=== PATIENT | male | born 1965 | race Caucasian/White ===

== ENCOUNTER 2018-05-24 12:55 | Emergency (ER) | payer MEDICAID ==
--- NOTE | 2018-05-24 13:50 | ED Physician Documentation ---
History of Present Illness - Stated complaint Stated Complaint: R SHOULDER SPIDER BITE - Chief complaint Chief Complaint: General - History obtained from History obtained from: Patient - History of Present Illness Timing: Other (For couple weeks he feels like he had a spider bite over the right deltoid, no fevers or chills. It is getting bigger.) Review of Systems Constitutional: denies: Fever, Chills Cardiac: reports: Reviewed and negative Respiratory: reports: Reviewed and negative PD PAST MEDICAL HISTORY - Past Medical History Past Medical History: Yes Psych: Depression - Past Surgical History Past Surgical History: Yes Ortho: Shoulder arthroplasty - Present Medications Home Medications: Ambulatory Orders Medication Instructions Recorded Confirmed Buprenorphine HCl/Naloxone HCl 05/24/18 [Suboxone 12 mg-3 mg Sl Film] Sertraline [Zoloft] 05/24/18 Sulfamethoxazole/Trimethoprim 1 each PO BID 10 Days tablet 05/24/18 [Sulfamethoxazole-Tmp Ds Tablet] - Allergies Allergies/Adverse Reactions: Allergies Allergy/AdvReac Type Severity Reaction Status Date / Time unknown Allergy Severe Unknown Uncoded 09/15/14 14:08 - Social History Does the pt smoke?: No Smoking Status: Never smoker Does the pt drink ETOH?: No Does the pt have substance abuse?: Yes - Immunizations Immunizations are current?: Yes - POLST Patient has POLST: No PD ED PE NORMAL - Vitals Vital signs reviewed: Yes - General General: Alert and oriented X 3, No acute distress - Extremities Extremities: Other (There is area of cellulitis under his Zhou Gray tattoo, the hair specifically, over the right deltoid. Bedside ultrasound shows a small fluid collection.) - Neuro Neuro: Alert and oriented X 3, Normal speech Results - Vitals Vitals: Vital Signs - 24 hr 05/24/18 05/24/18 13:00 14:27 Temperature 37 C 37.1 C Heart Rate 60 66 Respiratory 20 15 Rate Blood Pressure 131/86 H 137/91 H O2 Saturation 97 100 Oxygen O2 Source Room air - Labs Labs: Microbiology 05/24/18 13:45 Wound Culture - Preliminary Abscess Procedures - Abscess I&D (location) Right deltoid Preparation: Confirmed with ultrasound, Alcohol, Lidocaine 1% Incision: No: Incised with scalpel (He wanted to avoid an incision so was just needle aspirated with about 1.5 mL of pus out and sent for culture.) PD MEDICAL DECISION MAKING - Sepsis Event Vital Signs: Vital Signs - 24 hr 05/24/18 05/24/18 13:00 14:27 Temperature 37 C 37.1 C Heart Rate 60 66 Respiratory 20 15 Rate Blood Pressure 131/86 H 137/91 H O2 Saturation 97 100 Oxygen O2 Source Room air Departure - Departure Disposition: 01 Home, Self Care Clinical Impression: Abscess Condition: Good Record reviewed to determine appropriate education?: Yes Instructions: ED Staph Infec Abx Tx Only Prescriptions: Sulfamethoxazole/Trimethoprim [Sulfamethoxazole-Tmp Ds Tablet] 1 each PO BID 10 Days tablet Comments: We are performing a wound culture, the results should be done in 48-72 hours. If antibiotic change is necessary we will call you. Return if worse in the meantime, especially if you develop increased pain, fevers, cannot keep down the medication. Otherwise follow-up with your physician in approximately 2-3 days. Your blood pressure was elevated today on check into the emergency department. This does not mean that you have hypertension, it is a common phenomenon to come to the emergency department and have elevated blood pressure. I recommend that you see your primary care physician within the week to have it rechecked when you are feeling better. Discharge Date/Time: 05/24/18 14:27
[2018-05-24 14:28] VITALS: BP 137/91
== END 2018-05-24 14:27 | disposition home or self-care (01) ==
LOC: ED 12:55
DX: L02.413 Cutaneous abscess of right upper limb (principal); L03.113 Cellulitis of right upper limb; R03.0 Elevated blood-pressure reading, without diagnosis of hypertension
CPT/HCPCS: 10060; 10160; 87070; 87181; 87205; 99283

== ENCOUNTER 2018-07-28 17:57 | Emergency (ER) | payer MEDICAID ==
[2018-07-28 18:13] VITALS: BP 131/96
[2018-07-28] MEDS ORDERED: predniSONE 20 MG TABLET PO STA (19:50)
[2018-07-28] MEDS ORDERED: IBUPROFEN 800 MG TABLET PO STA (19:50)
--- NOTE | 2018-07-28 19:52 | ED Physician Documentation ---
PD HPI LOWER EXT INJURY - Stated complaint Stated Complaint: RT LEG PX - Chief complaint Chief Complaint: Ext Problem - History obtained from History obtained from: Patient - History of Present Illness PD HPI LOW EXT INJURY LOCATION: Other (53-year-old gentleman on Suboxone for history of opiate abuse presents with 10 days of worsening right leg pain from the hip down to the foot with numbness in the foot. Also into the back sometimes. There is no saddle anesthesia or fever. No recent opiate abuse. He was seen at the [facility] and diagnosed with tarsal tunnel syndrome and placed on gabapentin which she just started.) Review of Systems Constitutional: denies: Fever, Chills GI: denies: Abdominal Pain, Nausea, Vomiting : denies: Dysuria, Frequency PD PAST MEDICAL HISTORY - Past Medical History Psych: Depression - Past Surgical History Past Surgical History: Yes Ortho: Shoulder arthroplasty - Present Medications Home Medications: Ambulatory Orders Medication Instructions Recorded Confirmed Buprenorphine HCl/Naloxone HCl 1 each 05/24/18 [Suboxone 12 mg-3 mg Sl Film] Sertraline [Zoloft] 1 tab 05/24/18 Gabapentin 300 mg 07/28/18 Ibuprofen [Motrin] 800 mg PO Q8H PRN #30 tablet 07/28/18 hydrOXYzine HCl [Hydroxyzine HCl] 10 mg 07/28/18 predniSONE [Deltasone] 20 mg PO [id number] #21 tab 07/28/18 - Allergies Allergies/Adverse Reactions: Allergies Allergy/AdvReac Type Severity Reaction Status Date / Time unknown Allergy Severe Unknown Uncoded 09/15/14 14:08 - Social History Does the pt smoke?: No Smoking Status: Never smoker Does the pt drink ETOH?: No Does the pt have substance abuse?: Yes - Immunizations Immunizations are current?: Yes - POLST Patient has POLST: No PD ED PE NORMAL - Vitals Vital signs reviewed: Yes - General General: Alert and oriented X 3, No acute distress - Back Back: No CVA TTP, No spinal TTP - Extremities Extremities: Other (Slightly diminished sensation in the right L4-L5 distribution with weak toe dorsiflexion, he has symmetric patellar and Achilles reflexes and the remainder of his strength exam is normal.) - Neuro Neuro: Alert and oriented X 3, Normal speech Results - Vitals Vitals: Vital Signs - 24 hr 07/28/18 18:03 Temperature 37.1 C Heart Rate 81 Respiratory 22 Rate Blood Pressure 131/96 H O2 Saturation 99 Oxygen O2 Source Room air PD MEDICAL DECISION MAKING - ED course ED course: 53-year-old gentleman with what appears to be a L4-L5 lumbar radiculopathy. He is on Suboxone and is treated with steroids and anti-inflammatories, he just started gabapentin as well. - Sepsis Event Vital Signs: Vital Signs - 24 hr 07/28/18 18:03 Temperature 37.1 C Heart Rate 81 Respiratory 22 Rate Blood Pressure 131/96 H O2 Saturation 99 Oxygen O2 Source Room air Departure - Departure Disposition: Home, Self Care Clinical Impression: Lumbar radiculopathy Condition: Good Record reviewed to determine appropriate education?: Yes Instructions: ED Sciatica Prescriptions: Ibuprofen [Motrin] 800 mg PO Q8H PRN #30 tablet PRN Reason: PAIN &/OR FEVER predniSONE [Deltasone] 20 mg PO [id number] #21 tab Comments: Continue the gabapentin in addition to the medications I am prescribing. Follow-up with your doctor and discuss physical therapy. Return for new or wo rsening symptoms. Your blood pressure was elevated today on check into the emergency department. This does not mean that you have hypertension, it is a common phenomenon to come to the emergency department and have elevated blood pressure. I recommend that you see your primary care physician within the week to have it rechecked when you are feeling better. Forms: Activity restrictions
== END 2018-07-28 19:55 | disposition home or self-care (01) ==
LOC: ED 17:57
DX: M54.16 Radiculopathy, lumbar region (principal); R03.0 Elevated blood-pressure reading, without diagnosis of hypertension
CPT/HCPCS: 99283; A9270; J7512

== ENCOUNTER 2020-03-13 11:08 | Emergency (ER) | payer MEDICAID ==
--- NOTE | 2020-03-13 11:49 | XRAY Report ---
Reason: fall, swelling, pain Procedure Date: 03/13/2020 Accession Number: [id number] / [id number] Procedure: XR - Shoulder 3 View LT CPT Code: Final Report FULL RESULT: EXAM: LEFT SHOULDER RADIOGRAPHY EXAM DATE: 03/13/2020 11:28 AM. CLINICAL HISTORY: Fall, swelling, pain. COMPARISON: None. TECHNIQUE: 3 views. FINDINGS: Bones: Normal. No fracture or bone lesion. Joints: The glenohumeral and acromioclavicular joints are normal. Soft tissues: The visualized hemithorax is unremarkable. No soft tissue swelling. IMPRESSION: Normal shoulder radiography. No fracture or dislocation. RADIA
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
[2020-03-13] MEDS ORDERED: BUFFERED LIDOCAINE 10 ML SYRINGE SUBQ STA (12:43)
[2020-03-13 15:42] VITALS: BP 130/70
== END 2020-03-13 15:41 | disposition home or self-care (01) ==
LOC: ED 11:08
DX: L02.414 Cutaneous abscess of left upper limb (principal)
CPT/HCPCS: 10060; 87070; 87077; 87181; 87205

== ENCOUNTER 2021-05-25 10:02 | Outpatient (CLI) | payer MEDICAID, OTHER ==
[2021-05-25 10:24] LABS: BASOPHILS % (AUTO) 0.7 %; EOSINOPHILS # (AUTO) 0.1 10^3/uL (0.0-0.7); HCT - HEMATOCRIT 36.5 % (42.0-52.0); HGB - HEMOGLOBIN 12.1 g/dL (14.0-18.0); LYMPHOCYTES # (AUTO) 0.9 10^3/uL (1.5-3.5); MEAN CORPUSCULAR HEMOGLOBIN 30.5 pg (27.0-31.0); MEAN CORPUSCULAR HGB CONC 33.2 g/dL (32.0-36.0); MEAN CORPUSCULAR VOLUME 91.9 fL (80.0-94.0); MEAN PLATELET VOLUME 9.1 fL (7.4-11.4); MONOCYTES # (AUTO) 0.3 10^3/uL (0.0-1.0); MONOCYTES % (AUTO) 10.6 %; NEUTROPHILS # (AUTO) 1.7 10^3/uL (1.5-6.6); NEUTROPHILS % (AUTO) 54.7 %; PLT - PLATELET COUNT 174 10^3/uL (130-450); RED BLOOD COUNT 3.97 10^6/uL (4.70-6.10)
[2021-05-25 10:39] LABS: ALBUMIN 4.3 g/dL (3.2-5.5); ALBUMIN/GLOBULIN RATIO 1.7 (1.0-2.2); ALKALINE PHOSPHATASE 77 IU/L (42-121); ALT ALANINE AMINOTRANSFERASE 16 IU/L (10-60); AST ASPARTATE AMINOTRANSFERASE 25 IU/L (10-42); BILIRUBIN,TOTAL 0.5 mg/dL (0.2-1.0); BUN - BLOOD UREA NITROGEN 15 mg/dL (6-20); CALCIUM 9.1 mg/dL (8.5-10.3); CARBON DIOXIDE - CO2 25 mmol/L (21-32); CHLORIDE 104 mmol/L (101-111); CREATININE 0.8 mg/dL (0.6-1.2); GFR - MDRD 101 (>89); GLUCOSE 104 mg/dL (70-100); POTASSIUM 4.3 mmol/L (3.5-5.0); SODIUM 137 mmol/L (135-145); TOTAL PROTEIN 6.8 g/dL (6.7-8.2); VALPROIC ACID (DEPAKOTE) 48.5 ug/mL
== END 2021-05-25 10:03 | disposition home or self-care (01) ==
LOC: LAB 10:02
PROVIDERS: ATTEND Registered Nurse
DX: E72.20 Disorder of urea cycle metabolism, unspecified (principal); R76.8 Other specified abnormal immunological findings in serum; E34.9 Endocrine disorder, unspecified; R94.31 Abnormal electrocardiogram [ECG] [EKG]; R79.89 Other specified abnormal findings of blood chemistry; R68.89 Other general symptoms and signs
CPT/HCPCS: 36415; 80053; 80164; 82140; 84443; 85025; 86592; 93005

== ENCOUNTER 2022-09-11 12:18 | Emergency (ER) | payer MEDICAID ==
[2022-09-11 12:33] VITALS: BP 151/87
[2022-09-11] MEDS ORDERED: CEPHALEXIN 250 MG Prepack 8 CAP BOTTLE PO STA (13:15)
--- NOTE | 2022-09-11 13:17 | ED Physician Documentation ---
PD HPI HEENT - Stated complaint Stated Complaint: BUMP BEHIND L EAR - Chief complaint Chief Complaint: Heent - History obtained from History obtained from: Patient - Additional information Additional information: Ongoing pain to a left mandibular molar for the last year worse with eating, over the last few days has developed a mildly painful bump behind the left ear. No other infectious symptoms or fevers. Review of Systems Constitutional: reports: Reviewed and negative Ears: reports: Reviewed and negative Cardiac: reports: Reviewed and negative PD PAST MEDICAL HISTORY - Past Medical History Psych: Depression - Past Surgical History Past Surgical History: Yes Ortho: Shoulder arthroplasty - Present Medications Home Medications: Ambulatory Orders Medication Instructions Recorded Confirmed Buprenorphine HCl/Naloxone HCl 1 each 05/24/18 [Suboxone 12 mg-3 mg Sl Film] Sertraline [Zoloft] 1 tab 05/24/18 Gabapentin 300 mg 07/28/18 Ibuprofen [Motrin] 800 mg PO Q8H PRN #30 tablet 07/28/18 hydrOXYzine HCL [Hydroxyzine HCl] 10 mg 07/28/18 predniSONE [Deltasone] 20 mg PO [id number] #21 tab 07/28/18 Sulfamethoxazole/Trimethoprim 1 each PO BID #14 tablet 03/13/20 [Sulfamethoxazole-Tmp Ds Tablet] Penicillin V Potassium 500 mg PO Q6HR #40 tablet 09/11/22 - Allergies Allergies/Adverse Reactions: Allergies Allergy/AdvReac Type Severity Reaction Status Date / Time No Known Drug Allergies Allergy Verified 09/11/22 12:33 - Social History Does the pt smoke?: No Smoking Status: Never smoker Does the pt drink ETOH?: No Does the pt have substance abuse?: Yes - Immunizations Immunizations are current?: Yes - POLST Patient has POLST: No PD ED PE NORMAL - Vitals Vital signs reviewed: Yes - General General: Alert and oriented X 3 - HEENT HEENT: Other (There is a large mildly tender cavity in the second to last molar on the left mandible. There is a small left retroauricular lymph node with mild tenderness. TMs normal.) - Neck Neck: Supple, no meningeal sign, No bony TTP - Extremities Extremities: No tenderness to palpate, Normal ROM s pain - Neuro Neuro: Alert and oriented X 3, Normal speech - Psych Psych: Normal mood, Normal affect Results - Vitals Vitals: Vital Signs - 24 hr 09/11/22 12:31 Temperature 36.5 C Heart Rate 62 Respiratory 14 Rate Blood Pressure 151/87 H O2 Saturation 98 Oxygen O2 Source Room air PD MEDICAL DECISION MAKING - ED course ED course: 57-year-old gentleman with retroauricular adenopathy possibly related to a dental infection, both dental and ENT follow-up was advised and will trial some antibiotics in the interim. He is given a prepack despite the early hour given that it is Thanksgiving and the pharmacies are closed. Departure - Departure Disposition: 01 Home, Self Care Clinical Impression: Pain due to dental caries, Posterior auricular lymphadenopathy Condition: Good Record reviewed to determine appropriate education?: Yes Instructions: Lymphadenopathy, ED Tooth Pain Prescriptions: Penicillin V Potassium 500 mg PO Q6HR #40 tablet Comments: As discussed, the swollen left retroauricular lymph node is likely related to your dental infection. You can follow-up with an ear nose and throat physician for better evaluation of this, the closest is [facility], the phone number is [phone]. It is very important that you follow-up with a dentist. When it comes to dental problems like yours, the emergency department can only offer a short-term solution to your long-term problem. A couple of low cost options for dental c are include: [facility] in [place], calls [phone] for an appointment Or [facility] in [place], call [phone] for an appointment.
== END 2022-09-11 13:24 | disposition home or self-care (01) ==
LOC: ED 12:18
DX: K02.9 Dental caries, unspecified (principal); R59.1 Generalized enlarged lymph nodes
CPT/HCPCS: 99282; 99284

== ENCOUNTER 2023-01-30 23:14 | Emergency (ER) | payer MEDICAID ==
[2023-01-30] MEDS ORDERED: QUEtiapine 25 MG TABLET PO STA (23:35)
[2023-01-30 23:46] LABS: BASOPHILS % (AUTO) 0.7 %; EOSINOPHILS # (AUTO) 0.1 10^3/uL (0.0-0.7); EOSINOPHILS % (AUTO) 1.1 %; HCT - HEMATOCRIT 37.7 % (42.0-52.0); HGB - HEMOGLOBIN 12.5 g/dL (14.0-18.0); LYMPHOCYTES # (AUTO) 0.8 10^3/uL (1.5-3.5); LYMPHOCYTES % (AUTO) 13.5 %; MEAN CORPUSCULAR HEMOGLOBIN 30.3 pg (27.0-31.0); MEAN CORPUSCULAR HGB CONC 33.2 g/dL (32.0-36.0); MEAN CORPUSCULAR VOLUME 91.5 fL (80.0-94.0); MONOCYTES # (AUTO) 0.3 10^3/uL (0.0-1.0); MONOCYTES % (AUTO) 5.4 %; NEUTROPHILS # (AUTO) 4.5 10^3/uL (1.5-6.6); NEUTROPHILS % (AUTO) 78.9 %; PLT - PLATELET COUNT 275 10^3/uL (130-450); RED BLOOD COUNT 4.12 10^6/uL (4.70-6.10); RED CELL DISTRIBUTION WIDTH 12.1 % (12.0-15.0); WHITE BLOOD COUNT 5.7 x10^3/uL (4.8-10.8)
[2023-01-30 23:59] LABS: MUDS CUTOFF CONCENTRATIONS CUTOFF CONC BELOW:
[2023-01-31 00:02] LABS: ACETAMINOPHEN < 10 ug/mL (10-30); ALBUMIN 4.1 g/dL (3.2-5.5); ALBUMIN/GLOBULIN RATIO 1.4 (1.0-2.2); ALKALINE PHOSPHATASE 78 IU/L (42-121); ALT ALANINE AMINOTRANSFERASE 23 IU/L (10-60); AST ASPARTATE AMINOTRANSFERASE 24 IU/L (10-42); BILIRUBIN,TOTAL 0.4 mg/dL (0.2-1.0); BUN - BLOOD UREA NITROGEN 19 mg/dL (6-20); CALCIUM 9.1 mg/dL (8.5-10.3); CARBON DIOXIDE - CO2 27 mmol/L (21-32); CHLORIDE 99 mmol/L (101-111); CREATININE 0.8 mg/dL (0.6-1.2); ETOH - ETHANOL 8.5 mg/dL; GFR - MDRD 100 (>89); GLUCOSE 107 mg/dL (70-100); LIPASE 26 U/L (22-51); POTASSIUM 4.3 mmol/L (3.5-5.0); SALICYLATE < 6.0 mg/dL; SODIUM 136 mmol/L (135-145); TOTAL PROTEIN 7.1 g/dL (6.7-8.2)
[2023-01-31 00:09] LABS: BILIRUBIN,URINE NEGATIVE (NEGATIVE); GLUCOSE, URINE (UA) NEGATIVE (NEGATIVE); KETONES,URINE (UA) NEGATIVE (NEGATIVE); LEUKOCYTE ESTERASE, URINE NEGATIVE (NEGATIVE); NITRITE,URINE NEGATIVE (NEGATIVE); OCCULT BLOOD,URINE NEGATIVE (NEGATIVE); PROTEIN,URINE NEGATIVE (NEGATIVE); UROBILINOGEN,URINE 0.2 (NORMAL) E.U./dL (NORMAL)
[2023-01-31 00:12] LABS: CLARITY,URINE CLEAR (CLEAR)
[2023-01-31 00:28] LABS: AMPHETAMINE SCREEN,URINE POSITIVE (NEGATIVE); BARBITURATE SCREEN,UR NEGATIVE (NEGATIVE); BENZODIAZEPINES SCREEN, URINE NEGATIVE (NEGATIVE); COCAINE SCREEN URINE NEGATIVE (NEGATIVE); METHADONE SCREEN, URINE NEGATIVE (NEGATIVE); METHAMPHETAMINES SCREEN, URINE POSITIVE (NEGATIVE); OPIATE SCREEN, URINE NEGATIVE (NEGATIVE); OXYCODONE SCREEN, URINE NEGATIVE (NEGATIVE); PROPOXYPHENE SCREEN, URINE NEGATIVE (NEGATIVE); THC CANNABINOID SCREEN, URINE NEGATIVE (NEGATIVE); TRICYCLIC ANTIDEPRESSANT,URINE POSITIVE (NEGATIVE)
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
[2023-01-31] MEDS ORDERED: QUEtiapine 25 MG TABLET PO PRN (06:08)
[2023-01-31] MEDS ORDERED: LORazepam 1 MG TABLET PO STA ×3 (07:15→18:39)
[2023-01-31] MEDS ORDERED: ASPIRIN CHEW 81 MG TABLET PO STA (09:41)
--- NOTE | 2023-01-31 14:22 | ED Physician Documentation ---
ED Addendum - Addendum Addendum: 01/31/23 14:21 The patient has been akathetic and irritated this morning and has required a dose of Ativan. He did well with this and required a second dose. We have subsequently discovered that he is on Suboxone and we have ordered this on a regular basis for him. [facility] him and they will not have a bed until tomorrow.
[2023-01-31] MEDS: BUPRENORPHINE/NALOXONE 8-2 MG TAB SL SCH ×2 (14:46→21:02)
[2023-01-31] MEDS: QUEtiapine 100 MG TABLET PO SCH (20:03)
[2023-02-01] MEDS: BUPRENORPHINE/NALOXONE 8-2 MG TAB SL SCH ×3 (08:09→22:12)
[2023-02-01] MEDS: QUEtiapine 100 MG TABLET PO SCH (20:53)
[2023-02-02] MEDS: BUPRENORPHINE/NALOXONE 8-2 MG TAB SL SCH ×3 (06:12→21:09)
--- NOTE | 2023-02-02 12:23 | ED Physician Documentation ---
ED Addendum - Addendum Addendum: 02/02/23 12:18 The patient was signed out to me at change of shift, continuing to pend transfer to inpatient setting for psychiatric treatment. The patient was reevaluated by myself and our mental health clinician, and continued to demonstrate suicidal depression with psychotic features. He was also found to be decompensating with increasingly tangential speech and worsening hallucinations. The patient has had fluctuating suicidal thoughts, though he does have a baseline of chronic suicidality. He continues to state that sometimes he feels imminently suicidal and other times not as much. This does seem to rapidly cycle and has done so during his stay in the emergency department. The patient still is in need of inpatient treatment and we are continuing to work to find a setting that will meet his needs. If he is not transferred prior to the end of my shift, he will be signed out to the oncoming emergency physician continuing to pend this disposition.
[2023-02-02] MEDS: QUEtiapine 100 MG TABLET PO SCH (21:08)
[2023-02-03] MEDS: BUPRENORPHINE/NALOXONE 8-2 MG TAB SL SCH ×2 (06:29→14:05)
--- NOTE | 2023-02-03 13:44 | ED Physician Documentation ---
ED Addendum - Addendum Addendum: 02/03/23 13:44 Patient continues to board in the emergency department pending placement with social work. Social work has requested a CK, magnesium and an EKG for [facility] in [place].
--- NOTE | 2023-02-03 14:17 | ED Physician Documentation ---
ED Addendum - Addendum Addendum: 02/03/23 14:17 EKG requested by receiving facility shows a sinus bradycardia at the rate of 49 without any conductive abnormality. In particular no QTc prolongation.
[2023-02-03 14:39] LABS: MAGNESIUM 1.9 mg/dL (1.7-2.8)
--- NOTE | 2023-02-03 17:16 | ED Physician Documentation ---
ED Addendum - Addendum Addendum: 02/03/23 17:16 Patient is accepted to [facility] in [place], Dr. Philip. COBRA forms completed. Departure - Departure Disposition: [facility]/Unit [facility]/[place] Clinical Impression: Psychiatric symptoms, Methamphetamine use, Opioid abuse Condition: Stable
[2023-02-03 19:49] VITALS: BP 132/85
== END 2023-02-03 19:45 ==
LOC: ED 23:14
DX: F22 Delusional disorders (principal); G25.71 Drug induced akathisia; R45.851 Suicidal ideations; F11.10 Opioid abuse, uncomplicated; F29 Unspecified psychosis not due to a substance or known physiological condition; F43.21 Adjustment disorder with depressed mood; F15.20 Other stimulant dependence, uncomplicated; Z20.822 Contact with and (suspected) exposure to COVID-19; Z59.00 Homelessness unspecified
CPT/HCPCS: 36415; 80053; 80306; 80307; 80320; 80329; 81003; 82550; 83690; 83735; 84443; 85025; 87635; 90834; 93005; 99285; A9270; J8499; Q3014; 81001; 87086